=== PATIENT | female | born 2000 | race Caucasian/White ===

== ENCOUNTER 2024-12-18 08:14 | Day surgery (SDC) | payer OTHER, SELFPAY ==
[2024-11-18 10:11] VITALS: BMI 25.9
[2024-12-07 12:18] VITALS: BMI 25.9
[2024-12-18 08:58] VITALS: BMI 26.4
[2024-12-18 09:10] VITALS: BP 118/73; PULSE 72; RESP 18; TEMP 36.4; O2SAT 100
--- NOTE | 2024-12-18 09:13 | WPDANESEPPF ---
Anes - Initial Pre Proc Eval Procedure: Operation Date: 12/18/24 10:00 Proposed Procedures p Diagnostic Colonoscopy - Akin Lopez MD Date/Time: 12/18/24 09:13 Surgeon: Akin Lopez MD Pre Op Diagnosis: Melena Patient Data Age: 24 Gender: F Height: 1.65 m Weight: 72.2 kg Last Vital Signs Temp 36.4 C 12/18/24 09:10 Pulse 72 12/18/24 09:10 Resp 18 12/18/24 09:10 BP 118/73 12/18/24 09:10 Pulse Ox 100 12/18/24 09:10 O2 Del Method Room Air 12/18/24 09:10 Allergies Allergy/AdvReac Type Severity Reaction Status Date / Time cefdinir Allergy Mild Rash Verified 12/18/24 08:45 clindamycin Allergy Mild Rash Verified 12/18/24 08:45 doxycycline Allergy Mild Rash Verified 12/18/24 08:45 Home Medications ?Medication ?Instructions ?Recorded ?Confirmed ?Type Saccharomyces boulardii 250 mg 250 mg PO DAILY 12/07/24 12/18/24 History capsule (Daily Probiotic (S. boulardii)) multivitamin (One Daily 1 tablet PO DAILY 12/07/24 12/18/24 History Multivitamin tablet) Patient hx anesthesia problems: post op nausea/vomiting Family hx anesthesia problems: none Prior surgeries: r ulnar nerve transpostion Results Review: All pre-operative results and documents have been reviewed as part of the pre-operative evaluation. PMFSH Past Medical History Medical History Allergies Surgical History Surgical History H/O vascular surgery Family History Family History Mother Depression Social History Social History Smoking status: Never smoker Second hand tobacco smoke exposure: No Alcohol intake: current Alcohol use details: rare Substance use: never Substance use type: does not use Do You Feel Safe in your Home?: Yes Lack of Transportation: No Lack of Food: Never True Current Housing: I Have Housing Concerned About Future Housing: No Difficulty Paying Gas/Electric Bills: No Difficulty Paying for Meds: No Currently Unemployed: No Education: Bachelor's Degree Difficulty w/ Childcare or Family Care: No Living arrangements: other Additional living arrangements comments: with boyfriend Occupation/Education: occupation Gender identity (if verbalized by the patient): Female Sexual Orientation (if Verbalized by the Patient): Straight or Heterosexual Anes - Eval Final PreProcedure Day of Procedure 12/18/24 09:13 Heart: regular rate and rhythm Lungs: clear to auscultation Airway: Mallampati scale class II Neurological: alert and oriented Last oral intake: >/= 8 hours ASA classification: I Emergent: no Anesthetic plan: proceed Anesthesia type and monitoring: monitored anesthesia care Results Review: All pre-operative results and documents have been reviewed as part of the pre-operative evaluation. Informed Consent: The patient's anesthetic plan and its attendant risks and benefits were discussed with the patient/family/POA. Questions were solicited and answers provided to the satisfaction of the patient/family/POA.
--- NOTE | 2024-12-18 09:35 | PM.IMHP ---
H&P: HPI History of Present Illness Date/Time: 12/18/24 09:35 Chief Complaint: Rectal bleeding Narrative: the patient had a minor amount of rectal bleeding 2 months ago, single episode. She has been subsequently asymptomatic except for chronic constipation. She has been referred today for a colonoscopy. Review of Systems Review of Systems: All systems reviewed & are unremarkable except as noted in HPI and below PMFSH Past Medical History Medical History Allergies Surgical History Surgical History H/O vascular surgery Family History Family History Mother Depression Social History Social History Smoking status: Never smoker Second hand tobacco smoke exposure: No Alcohol intake: current Alcohol use details: rare Substance use: never Substance use type: does not use Do You Feel Safe in your Home?: Yes Lack of Transportation: No Lack of Food: Never True Current Housing: I Have Housing Concerned About Future Housing: No Difficulty Paying Gas/Electric Bills: No Difficulty Paying for Meds: No Currently Unemployed: No Education: Bachelor's Degree Difficulty w/ Childcare or Family Care: No Living arrangements: other Additional living arrangements comments: with boyfriend Occupation/Education: occupation Gender identity (if verbalized by the patient): Female Sexual Orientation (if Verbalized by the Patient): Straight or Heterosexual Meds Home Medications and Allergies Home Medications ?Medication ?Instructions ?Recorded ?Confirmed ?Type Saccharomyces boulardii 250 mg 250 mg PO DAILY 12/07/24 12/18/24 History capsule (Daily Probiotic (S. boulardii)) multivitamin (One Daily 1 tablet PO DAILY 12/07/24 12/18/24 History Multivitamin tablet) Allergies Allergy/AdvReac Type Severity Reaction Status Date / Time cefdinir Allergy Mild Rash Verified 12/18/24 08:45 clindamycin Allergy Mild Rash Verified 12/18/24 08:45 doxycycline Allergy Mild Rash Verified 12/18/24 08:45 Vital Signs Vital Signs - 24 hr 12/18/24 09:10 Temperature 97.6 F Pulse Rate 72 Respiratory Rate 18 Blood Pressure 118/73 Pulse Oximetry 100 Oxygen Delivery Room Air Exam Const: General: cooperative and healthy appearing Resp: Effort & Inspection: normal respiratory effort and able to speak in complete sentences Auscultation: clear to auscultation bilaterally Cardio: Rate: regular rate Rhythm: regular rhythm GI: Inspection: normal to inspection GI Palp: No No hepatosplenomegaly present Auscultation: normal bowel sounds Rectal Exam: deferred Skin: General skin exam: normal color Psych: Appearance: grossly normal Mental Status: mental status grossly normal Assessment and Plan Assessment and plan (1) Hematochezia: Code(s): K92.1 - Melena Status: Acute Assessment and Plan: The patient is deemed a good candidate for the procedure. Consent signed. Will proceed.
[2024-12-18] MEDS: LACTATED RINGERS 1,000 ML 150 ML IV CONT (10:28)
[2024-12-18 10:31] VITALS: BP 113/69; PULSE 80; RESP 15; O2SAT 100
[2024-12-18 10:41] VITALS: BP 109/63; PULSE 82; RESP 16; O2SAT 100
[2024-12-18 10:51] VITALS: BP 115/67; PULSE 82; RESP 16; O2SAT 100
== END 2024-12-18 11:02 | disposition home or self-care (01) ==
PROVIDERS: PCP Nurse Practitioner; Referring Provider Nurse Practitioner Family; Visit Provider Internal Medicine Gastroenterology
PROC: 0DJD8ZZ Inspection of Lower Intestinal Tract, Via Natural or Artificial Opening Endoscopic (ICD-10-PCS; CPT 45378; principal; 2024-12-18 10:00)
DX: K62.5 Hemorrhage of anus and rectum (principal); K64.8 Other hemorrhoids
CPT/HCPCS: 45378